=== PATIENT | male | born 1950 | race Caucasian/White ===

== ENCOUNTER 2016-07-16 13:29 | Emergency (ER) | payer OTHER ==
[2016-07-16 17:16] LABS: CALCIUM 8.8 mg/dL (8.5-10.1); CARBON DIOXIDE 29.2 mmol/L (21-32); CHLORIDE SERUM 99 mmol/L (98-107); CREATININE SERUM 0.9 mg/dL (0.7-1.3); GFR1 > 60 mL/min; GLUCOSE SERUM 93 mg/dL (74-106); SODIUM SERUM 136 mmol/L (136-145)
[2016-07-16 17:20] LABS: ALBUMIN 3.4 g/dL (3.4-5.0); ALKALINE PHOSPHATASE 114 U/L (46-116); ALT/SGPT 16 U/L (16-63); AST/SGOT 18 U/L (15-37); BILIRUBIN TOTAL 0.6 mg/dL (0.20-1.00); LIPASE 74 IU/L (73-393); TOTAL PROTEIN, SERUM 7.6 g/dL (6.4-8.2)
[2016-07-16 17:21] LABS: PLATELET COUNT 61 x10^3mcL (130-400)
[2016-07-16 18:17] LABS: ATYPICAL LYMPH 10 %; BAND NEUTROPHIL 8 % (0-10); BASOPHIL 0 % (0-2); BLAST 3 % (0); MONOCYTE 2 % (0-7); SEGMENTED NEUTROPHILS 24 % (37-75)
[2016-07-16 18:18] LABS: PATH REVIEW for HEMA YES; PLATELET MORPHOLOGY PLATELETS DECREASED; rbc morphology (normal/abnorm) ABNORMAL (NORMAL)
[2016-07-16 19:18] VITALS: BP 123/72
== END 2016-07-16 19:18 | disposition home or self-care (01) ==
LOC: ED 13:29
PROVIDERS: Emergency Medicine
DX: C85.95 Non-Hodgkin lymphoma, unspecified, lymph nodes of inguinal region and lower limb (principal); L04.1 Acute lymphadenitis of trunk; R53.1 Weakness; E03.9 Hypothyroidism, unspecified
CPT/HCPCS: 85060